=== PATIENT | male | born 1960 | race Caucasian/White ===

== ENCOUNTER 2022-05-26 06:44 | Emergency (ER) | payer SELFPAY ==
[~2022-05-26] VITALS: Ht 180.3 cm; Wt 75.0 kg
[~2022-05-26 06:44] MED LIST: LORTAB 5/500 501 TAB PO; NO HOME MEDICATIONS
[2022-05-26 06:51] VITALS: BP 161/94; TEMP 97.1
[2022-05-26] MEDS ORDERED: ZANAFLEX CAPSULE4 MG PO (07:24)
[2022-05-26] MEDS ORDERED: NORCO 325 MG-51 TAB PO (07:24)
[2022-05-26 07:41] VITALS: PULSE 88
== END 2022-05-26 07:42 | disposition home or self-care (01) ==
LOC: COL.ER 06:44
DX: M54.50 Low back pain, unspecified (principal); F17.200 Nicotine dependence, unspecified, uncomplicated; Z98.890 Other specified postprocedural states
CPT/HCPCS: J2360